=== PATIENT | female | born 1970 | race Caucasian/White ===

== ENCOUNTER 2020-09-19 14:39 | Outpatient (CLI) | payer BC ==
--- NOTE | 2020-09-19 16:15 | MRI ---
MR the lumbar spine without contrast INDICATION: 50-year-old female with bulging disc for 3 years with left leg pain extending into the le ft thigh for 2 weeks COMPARISON: MR lumbar spine without contrast dated November 03, 2011 TECHNIQUE: Multiplanar multisequence MR images were obtained of lumbar spine without IV contrast. FINDINGS: Bone marrow: Bone marrow signal intensity appears within normal limits. Distal spinal cord and conus: Normal. The conus seen to terminate at L2. Visualized retroperitoneum and paraspinal soft tissues: Normal. Vertebral levels: L5-S1: There is a small central protrusion superimposed on a broad-based disc bulge that appears ivan lar to the prior exam. There is mild facet joint degenerative change. There is loss of disc space height. There is some mild left neural foraminal narrowing which is stable to the prior exam.. L4-5: There is a broad-based disc bulge with facet hypertrophy and loss of disc space height inducing mild bilateral neural foraminal narrowing. This appears relatively stable to the prior exam. L3-4: There is a broad-based bulge with facet hypertrophy but no appreciable central canal. Previousl y seen prominent left foraminal disc protrusion at L3-4 has partially resorbed from the prior exam. There is less narrowing of the left L3-4 neural foramina. No right-sided neural foraminal narrowing i s present. L2-3: There is a broad-based bulge. There is a superimposed left cephalad extending paracentral and l eft foraminal disc extrusion measuring 2.0 x 1.3 cm. The extruded disc does extend into the left L2-3 foramina inducing moderate to severe narrowing and contacts the exiting left L2 nerve root, best seen on image 13 of series 3. L1-L2: No appreciable central canal or neuroforaminal narrowing. T12-L1: No appreciable central canal or neuroforaminal narrowing. IMPRESSION: 1. New left cephalad paracentral to left foraminal disc extrusion at L2-3 induces moderate to severe left L2-3 neural foramina with contact of the exiting left L2 nerve root. 2. Interval partial resorption of the left L3-4 disc protrusion with minimal residual narrowing of th e left L3-L4 neural foramina. 3. Stable mild bilateral neural foraminal narrowing at L4-5. Stable left L5-S1 neural foraminal narro wing.
== END 2020-09-19 14:40 | disposition home or self-care (01) ==
LOC: TBSIIMAG 14:39
PROVIDERS: ATTEND Nurse Practitioner Family
DX: M51.16 Intervertebral disc disorders with radiculopathy, lumbar region (principal); M48.061 Spinal stenosis, lumbar region without neurogenic claudication; M48.07 Spinal stenosis, lumbosacral region
CPT/HCPCS: 72148